=== PATIENT | male | born 1975 | race Caucasian/White ===

== ENCOUNTER 2022-06-02 18:50 | Emergency (ER) | payer OTHER, SELFPAY ==
--- NOTE | ~2022-06-02 | XR_ITS ---
XR knee RT min 4V 06/02/2022 20:05 INDICATION: Right knee pain PROCEDURE: 4 views right knee COMPARISON: No prior studies for comparison. FINDINGS: Fracture, dislocation or subluxation is not identified. No significant joint effusion. The soft tissues appear within normal limits. No foreign bodies are identified. IMPRESSION: 1: NO ACUTE BONE OR JOINT ABNORMALITY IDENTIFIED. Reviewed, dictated and finalized at location A.
[2022-06-02 18:59] VITALS: BP 126/86; PULSE 62; RESP 16; TEMP 36.3; O2SAT 99
--- NOTE | 2022-06-02 19:55 | ED.LOWEXIN ---
HPI - Extremity Injury (Lower) General Chief Complaint: Extremity Injury, Lower Stated Complaint: right knee pain Time Seen by Provider: 06/02/22 19:45 History of Present Illness HPI Narrative: 46-year-old male presents with chronic pain in his right knee, he had injured it several years ago and has had pain there ever since, however he has not been able to see any specialist or get any imaging for it because he had no insurance at the time. He now has insurance and would like to be plugged into the system, he does not recall any recent traumas but about a week ago the knee had gotten quite swollen and painful, has now gotten better on its own but he is ready to be seen by orthopedics Related Data Home Medications Medication Instructions Recorded Confirmed No Home Medications 06/02/22 06/02/22 Allergies Allergy/AdvReac Type Severity Reaction Status Date / Time No Known Allergies Allergy Verified 06/02/22 18:52 Review of Systems Review of Systems: CONST: No fever. M/S: Right knee pain SKIN: No rash. NEURO: No focal numbness or weakness [facility] Past Medical History Medical History (Updated 06/02/22 @ 20:05 by Lillian Oneal MD) Chronic knee pain Surgical History Surgical History (Updated 06/02/22 @ 20:01 by Lillian Oneal MD) No significant past surgical history Exam Narrative: EXAMINATION OF ORGAN SYSTEMS/BODY AREAS: Constitutional: Vital signs per nursing GENERAL:[No acute distress, non-toxic appearing.] HEAD: Normal with no signs of head trauma. EYES: EOMI, conjunctiva normal ENT: Hearing grossly intact LUNGS: Nonlabored breathing. HEART: [Regular rate and rhythm] EXT: Normal range of motion; able to bear weight on his leg, some tenderness palpation in the medial inferior aspect of the right knee, minimal effusion. Good perfusion, slight antalgic gait SKIN: [No rashes or lesions.] NEURO: [Alert and oriented x 3. No gross focal sensory or strength deficits.] PSYCH: Normal affect Course Vital Signs Vital signs: Vital Signs Temperature 97.3 F L 06/02/22 18:59 Pulse Rate 62 06/02/22 18:59 Respiratory Rate 16 06/02/22 18:59 Blood Pressure 126/86 06/02/22 18:59 Pulse Oximetry 99 06/02/22 18:59 Temperature 97.3 F L 06/02/22 18:59 Pulse Rate 62 06/02/22 18:59 Respiratory Rate 16 06/02/22 18:59 Blood Pressure 126/86 06/02/22 18:59 Pulse Oximetry 99 06/02/22 18:59 MDM - Extremity Injury (Lower) MDM Narrative Medical decision making narrative: 46-year-old male presenting with chronic right knee pain after injury several years ago, which recently became swollen and painful but has been improving on its own. Vital stable, exam shows forage motion of the right knee, neurovascularly intact, with some minimal tenderness to the medial inferior aspect, I low concern for any fracture without any new injury and he is ambulating on the leg, I suspect possible acute exacerbation of old ligamentous or meniscus injury, XR will be obtained. XR is negative for acute fx. He will be given f/u with ortho for further management; return precautions provided. Discharge Plan Discharge Clinical Impression: Injury of knee, right Patient Disposition: Home, Self-Care Condition: Stable Instructions: Antibiotic Form, Knee Sprain (DC), Knee Immobilizer (ED) Additional Instructions: Please follow up with the orthopedist and keep the knee immobilizer on; come back if you have any new numbness/weakness/coldness to the leg or any worsening pain. Prescriptions: No Action No Home Medications Follow-up/Referrals: PHYSICIAN,EMR IMPLEMENTATION SPECIALIST [Primary Care Provider] - David Stover MD [Physician] - 2 Days
== END 2022-06-02 20:51 | disposition home or self-care (01) ==
LOC: ANHED 20:45
PROVIDERS: Emergency Provider Emergency Medicine
DX: M25.561 Pain in right knee (principal); G89.21 Chronic pain due to trauma
CPT/HCPCS: 73564; 99283

== ENCOUNTER 2024-10-27 00:48 | Emergency (ER) | payer OTHER, SELFPAY ==
[2024-10-27 00:51] VITALS: BP 147/93; PULSE 67; RESP 15; TEMP 36.3; O2SAT 100
--- NOTE | 2024-10-27 02:37 | ED.GENADULT ---
HPI - General Adult General Chief complaint: Headache Stated complaint: migraine Time Seen by Provider: 10/27/24 02:23 History of Present Illness HPI narrative: 49-year-old male present to the emergency department for evaluation for headache. Patient states he does have a history of migraines/headache. Patient states that often his headaches are behind the right eye head are sharp but only last approximately 30 minutes. Patient reports he has had multiple headaches over the last few days affecting the right eye. Patient denies any falls or injuries. Related Data Home Medications ?Medication ?Instructions ?Recorded ?Confirmed ?Last Taken ?Type No Home Medications 06/02/22 06/02/22 Unknown History Allergies Allergy/AdvReac Type Severity Reaction Status Date / Time No Known Allergies Allergy Verified 06/02/22 18:52 Review of Systems Review of Systems: All systems reviewed & are unremarkable except as noted in HPI and below PMFSH Past Medical History Medical History (Updated 10/27/24 @ 03:38 by Omar Denney MD) Chronic knee pain Surgical History Surgical History (Updated 06/02/22 @ 20:01 by Lillian Oneal MD) No significant past surgical history Exam Narrative: APPEARANCE: Well appearing, no pain, no distress, well-nourished. HEAD: normocephalic, atraumatic. EYES: PERRLA/EOMI, conjunctivae clear. NOSE: Normal no drainage EARS:TMS clear with good light reflex. THROAT: Pharynx clear, no exudate. NECK: Supple. No adenopathy, no masses. RESPIRATORY: Airway patent, respirations nonlabored. Clear to auscultation bilaterally, no rales, rhonchi, wheezing. CARDIOVASCULAR: Regular rate and rhythm without murmurs rubs or gallops. ABDOMINAL: Soft, nontender, nondistended, normal bowel sounds MUSCULOSKELETAL: Moves all extremities. Strength/ROM intact, No edema, No calf tenderness. NEURO: Alert. Cranial nerves II through XII intact. SKIN: Warm, dry. Normal Color Course Vital Signs Vital signs: Vital Signs Temperature 97.4 F L 10/27/24 00:51 Pulse Rate 67 10/27/24 00:51 Respiratory Rate 15 10/27/24 00:51 Blood Pressure 147/93 H 10/27/24 00:51 Pulse Oximetry 100 10/27/24 00:51 Oxygen Delivery Room Air 10/27/24 00:51 Temperature 97.4 F L 10/27/24 00:51 Pulse Rate 67 10/27/24 00:51 Respiratory Rate 15 10/27/24 00:51 Blood Pressure 147/93 H 10/27/24 00:51 Pulse Oximetry 100 10/27/24 00:51 Oxygen Delivery Room Air 10/27/24 00:51 Medical Decision Making MDM Narrative Medical decision making narrative: 49-year-old male presents emergency department for evaluation for headache primarily behind the right eye. Patient was placed on high-flow oxygen for concern for cluster headache. Patient did not feel that the oxygen helped much. Patient was treated with Toradol Compazine Benadryl IV fluids states this resolved his headache. Patient is alert oriented pain-free. Patient was encouraged close follow-up with primary care physician to potentially get rescue medications for his migraines. Patient was educated on reasons to return to the emergency department. All questions concerns were addressed. Patient was well-appearing at time of discharge. Differential Diagnosis Differential Diagnosis: Migraine, headache, cluster headache Vital Signs Vital Signs: Vital Signs Temperature 97.4 F L 10/27/24 00:51 Pulse Rate 67 10/27/24 00:51 Respiratory Rate 15 10/27/24 00:51 Blood Pressure 147/93 H 10/27/24 00:51 Pulse Oximetry 100 10/27/24 00:51 Oxygen Delivery Room Air 10/27/24 00:51 Temperature 97.4 F L 10/27/24 00:51 Pulse Rate 67 10/27/24 00:51 Respiratory Rate 15 10/27/24 00:51 Blood Pressure 147/93 H 10/27/24 00:51 Pulse Oximetry 100 10/27/24 00:51 Oxygen Delivery Room Air 10/27/24 00:51 Discharge Plan Discharge Clinical Impression: Headache Patient Disposition: Home, Self-Care Condition: Stable Instructions: Antibiotic Form, Cluster Headache (ED), Migraine Headache (ED) Additional Instructions: Have close follow-up with your primary care physician regarding or migraines. If you have any worsening symptoms then please call or return to the emergency department. Patient Language: Portuguese Prescriptions: No Action No Home Medications Follow-up/Referrals: PHYSICIAN,ELECTRONIC WARFARE TECHNICAL [Primary Care Provider] -
[2024-10-27] MEDS: PROCHLORPERAZINE EDISYLATE 10 MG/2 ML VIAL IV PUSH (02:57)
[2024-10-27] MEDS: diphenhydrAMINE HCl INJ 50 MG/ML VIAL 25 MG IV PUSH (02:57)
[2024-10-27] MEDS: KETOROLAC 15 MG/ML VIAL (*BKC) IV PUSH (02:57)
[2024-10-27] MEDS: SODIUM CHLORIDE 0.9% IV 1,000 ML 999 ML IV CONT (02:58)
[2024-10-27 04:09] VITALS: BP 101/64; PULSE 84; RESP 16; O2SAT 100
--- OUTSIDE RECORDS SUMMARY | 2024-11-03 01:40 | XMS_ITS | Patient Health Record ---
Author Organization [facility] Address [address] [place] [id number] Care Team Providers Care Final Cleaner Name Role Phone Mendel Pagan Unavailable Unavailable Reason For Referral No Information Plan Of Treatment No Information Insurance Providers Payer Name Payer Address Payer Phone Subscriber Number Group Number Insured Name Patient Relationship to Insured Coverage Start Date Coverage End Date [facility] Pratima/Ronaldo Ej Ren Self - patient is the insured
--- OUTSIDE RECORDS SUMMARY | 2024-11-03 01:40 | XMS_ITS | Encounter Summary ---
Author Organization [facility] Address [address] [place] [address]. [place] [address] [place] [address] Care Team Providers Care Auditor Tax Name Role Phone None, Provider Primary Care Provider Unavaila ble Reason for Visit * Reason Comments Eye Injury Encounter Details Date Type Department Care Team (Late st Contact Info) Description 12/18/2022 8:46 AM CARE MANAGER - 12/18/2022 10:09 AM CARE MANAGER Emergency [facility] [place] [address] Samina Lobato NP [address] [address] Eye Injury Discharge Disposition: Home or Self Care (Routine Discharge) Social History Tobacco Use Types Packs/Day Years Used Date Smoking Tobacco: Never Smokeless Tobacco: Never Tobacco Cessation:Counseling Given: Not Answered Alcohol Use Standard Drinks/Week Comments Not Currently 0 (1 standard drink = 0.6 oz pur e alcohol) Sex and Gender Information Value Date Recorded Sex Assigned at Not on file Legal Sex Male 8:40 AM CARE MANAGER Gender Identity Not on file Sexual Orientation Not on file COVID-19 Exposure Response Date Recorded In the last 10 days, have yo u been in contact with someone who was confirmed or suspected to have Coronavirus/COVID-19? No / Unsure 12/18/2022 8:46 AM CARE MANAGER documented as of this encounter Last Filed Vital Signs Vital Sign Reading Time Taken Comments Blood Pressure 139/85 12/18/2022 8:44 AM CARE MANAGER Pulse 63 12/18/2022 8:44 AM CARE MANAGER Temperature 36.6 ??C (97.8 ??F) 12/18/2022 8:44 AM CS T Respiratory Rate 18 12/18/2022 8:44 AM CARE MANAGER Oxygen Saturation 99% 12/18/2022 8:44 AM CARE MANAGER Inhaled Oxygen Concentration - - Weight 90.7 kg (200 lb) 12/18/2022 8:44 AM CARE MANAGER Height 180.3 cm (5' 11 ) 12/18/2022 8:44 AM CARE MANAGER Body Mass Index 27.89 12/18/2022 8:44 AM CARE MANAGER documented in this encounter Discharge Instructions * Attachments The following attachments cannot be sent through Care Everywhere. * Corneal Abrasion Discharge Instructions (Romansh) documented in this encounter ED Notes * Charu Lemos RN - 12/18/2022 10:08 AM CST Provider discussed today's findings with the patient/family. The patient has been given informationregarding their treatment, follow up and concerning symptoms for which they should seek urgent or emergent attention. I have expressed the the importance of seeking attention should there be any new,or worsening symptoms or persistence of their condition. Patient verbalized understanding of the discharge instructions. MANAGER * Samina Lobato NP - 12/18/2022 8:51 AM CST [facility] Emergency Department- [place], [place] HISTORICAL INFORMATION Primary Care Doctor: Provider Tracey, Patient information was obtained primarily from the patient, triage notes. History/Exam limitations: None Provider at Bedside Date/Time Event User Comments 12/18/22 0850 Provider at Bedside Assessing Patient SAMINA LOBATO -- CHIEF COMPLAINT Eye Injury Chief Complaint Patient presents with ??? Eye Injury HPI Ej Ren is a 47-year-old male who presents with c/o possible foreign body in left eye. Was power washing yesterday and also grinding , he did wear safety goggles but they got so dirty, he is not sure something did not fall into his eye when he removed the glasses. Did shower twice last night, noted increase in symptoms after first shower and then allowed shower water to run into his eye with second shower. Still feels like something was moving around up under the upper lid and used an OTC eye kit today with no relief. Was working at home. Does not wear glasses for vision correction He is not sure of his last tetanus. PAST MEDICAL HISTORY History reviewed. No pertinent past medical history. SURGICAL HISTORY History reviewed. No pertinent surgical history. CURRENT MEDICATIONS No current facility-administered medications for this encounter. Current Outpatient Medications: ??? ibuprofen (MOTRIN) 800 MG tablet, Take 1 tablet (800 mg total) by mouth every 8 (eight) hours as needed for Pain. Take with food, Disp: 20 tablet, Rfl: 0 ??? trimethoprim-polymyxin b (POLYTRIM) ophthalmic solution, Place 1 drop into both eyes every 4 (four) hours for 7 days., Disp: 3 mL, Rfl: 0 ALLERGIES No Known Allergies FAMILY HISTORY No family history on file. SOCIAL HISTORY Social History Socioeconomic History ??? Marital status: Single Tobacco Use ??? Smoking status: Never ??? Smokeless tobacco: Never Substance and Sexual Activity ??? Alcohol use: Not Currently ??? Drug use: Not Currently Review of Systems Eyes: Positive for photophobia, pain and visual disturbance. Left eye, foreign body sensation. Physical Exam VITAL SIGNS: Filed Vitals: 12/18/22 0844 BP: 139/85 Pulse: 63 Resp: 18 Temp: 97.8 ??F (36.6 ??C) TempSrc: Temporal SpO2: 99% Weight: 90.7 kg (200 lb) Height: 5' 11 (1.803 m) Physical Exam Vitals reviewed. Constitutional: General: He is not in acute distress. Appearance: He is well-developed. HENT: Head: Normocephalic. Eyes: General: Right eye: No discharge. Left eye: No discharge. Extraocular Movements: Extraocular movements intact. Pupils: Pupils are equal, round, and reactive to light. Comments: Left conjunctiva injected. 2 areas of left cornea have fluoresein uptake. Upper and lowerlids everted. 2 'dots' washed off eye onto towel but not able to tell if wood, dirt or metal. No rust ring noted on cornea. 1 in the center of the iris and one at 7o clock. Tip of sterile 27 needle applied to center spot, does not lift. No pain with that attempt per patient. There is no fluid or jelly discharge from the eye. Cardiovascular: Rate and Rhythm: Normal rate. Pulmonary: Effort: Pulmonary effort is normal. Skin: General: Skin is warm and dry. Coloration: Skin is not pale. Neurological: Mental Status: He is alert and oriented to person, place, and time. Psychiatric: Judgment: Judgment normal. EKG (interpreted by ED provider) No results found for this visit on 12/18/22. LABORATORY Labs Reviewed - No data to display RADIOLOGY No orders to display naPROCEDURES Procedures Eye flush, complete relief with tetracaine drop. Tolerated well. Pulse Oximetry Interpretation Saturation: 99% Oxygen Delivery: room air Interpretation: normal. No hypoxia PROGRESS NOTES Tolerated eye flush well. He has complete relief with tetracaine drop. Discussed likely corneal abrasion x 2. No rust ring. Could still be a foreign body. Will treat with antibiotics and if not better in 24 hours or any worsening, to call ophth for follow up or return. He and agree. Differential diagnosis: foreign body in eye, corneal abrasions x 2 ED COURSE & MEDICAL DECISION MAKING Pertinent Labs & Imaging studies reviewed. (See chart for details) na Amount and/or Complexity of Data Reviewed Triage notes and available nursing notes reviewed FINAL IMPRESSION Corneal abrasion x 2 Samina Lobato NP I have discussed today's findings with the patient and provided information regarding the likely diagnosis. The patient has been given information regarding their treatment, follow up and concerning symptoms for which they should seek urgent or emergent attention. I have expressed the the importance of seeking attention should there be any new, or worsening symptoms or persistence of their condition. The patient is stable at discharge and has verbalized understanding of these instructions. Impression/Disposition SNOMED CT(R) 1. Abrasion of left cornea, initial encounter ABRASION OF LEFT CORNEA Disposition: Discharge Medications tetracaine 0.5 % ophthalmic solution 1 drop (1 drop Left Eye Given 12/18/22 09) fluorescein (FLUORETS) ophthalmic strip 1 strip (1 strip Left Eye Given 12/18/22902) Tdap (BOOSTRIX) injection 0.5 mL (0.5 mLs Intramuscular Given 12/18/22 09) Discharge Medication List as of 12/18/2022 9:56 AM START taking these medications Details trimethoprim-polymyxin b (POLYTRIM) ophthalmic solution Place 1 drop into both eyes every 4 (four) hours for 7 days., Starting 12/18/2022, Until 12/25/2022, Fax Class: Fax Pharmacy: [id number] - [address] [facility] [address] (Ph #: [phone]) DAYANARA CHAMORRO NP 12/18/22 1824 Cosigned by Layton Dent MD at 12/19/2022 1:23 PM CARE MANAGER MANAGER MANAGER * Rosette Funez RN - 12/18/2022 8:44 AM CST 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 He reports getting a piece of metal in his eye. He reports pain/burning with vision changes. ROSETTE FUNEZ RN MANAGER documented in this encounter Plan of Treatment Not on file documented as of this encounter Visit Diagnoses Diagnosis Abrasion of left cornea, initial encounter- Primary documented in this encounter Administered Medications Inactive Administered Medications - up to 3 most recent administrations Medication Order MAR Action Action Date Dose Rate Site balanced salts (EYE STREAM) ophthalmic solution 1 drop 1 drop, Left Eye, As needed, Other, Starting on 12/18/22 at 0850, Until 12/18/22 at 1210 fluorescein (FLUORETS) ophthalmic strip 1 strip 1 strip, Left Eye, Once, 1 dose, On 12/18/22 at 0900 Given 12/18/2022 9:03 AM CARE MANAGER 1 strip tetracaine 0.5 % ophthalmic solution 1 drop 1 drop, Left Eye, Once, 1 dose, On 12/18/22 at 0900 Given 12/18/2022 9:03 AM CARE MANAGER 1 drop documented in this encounter Active and Recently Administered Medications Times are shown in CARE MANAGER. Scheduled Medication Order 12/16/2022 12/17/2022 12/18/2022 fluorescein (FLUORETS) ophthalmic strip 1 strip (COMPLETED) 1 strip, Left Eye, Once, 1 dose, On 12/18/22 at 0900 0903 (Given - Provid er: Charu Lemos RN) tetracaine 0.5 % ophthalmic solution 1 drop (COMPLETED) 1 drop, Left Eye, Once, 1 dose, On 12/18/22 at 0900 0903 (Given - Provid er: Charu Lemos RN) PRN Medication Order 12/16/2022 12/17/2022 12/18/2022 balanced salts (EYE STREAM) ophthalmic solution 1 drop 1 drop, Left Eye, As needed, Other, Starting on 12/18/22 at 0850, Until 12/18/22 at 1210 documented in this encounter Care Teams Auditor Tax Relationship Specialty Start Date End Date None, Provider, PCP - General UNKNOWN PHYSICIAN SPECIALTY 12/18/22 documented as of this encounter
--- OUTSIDE RECORDS SUMMARY | 2024-11-03 01:40 | XMS_ITS | Encounter Summary ---
Author Organization [facility] Care Team Providers Care Curator Of Manuscripts Name Role Phone Provider, None Primary Care Provider Unavailabl e Encounter Details Date Type Department Care Team (Latest Contact Info) Description 05/02/2021 Travel Social History Tobacco Use Types Packs/Day Years Used Date Smoking Tobacco: Every Day Cigarettes Smokeless Tobacco: Never Alcohol Use Standard Drinks/Week Comments Yes 0 (1 standard drink = 0.6 oz pur e alcohol) Sex and Gender Information Value Date Recorded Sex Assigned at Not on file Legal Sex Male 9:59 PM CDT Gender Identity Not on file Sexual Orientation Not on file COVID-19 Exposure Response Date Recorded In the last month, have you been in contact with someone who was confirmed or suspected to have Coronavirus / COVID-19? No / Unsure 05/02/2021 3:07 PM CDT documented as of this encounter Plan of Treatment Not on file documented as of this encounter Visit Diagnoses Not on filedocumented in this encounter Care Teams Curator Of Manuscripts Relationship Specialty Start Date End Date Provider, None [place] PCP - General 04/19/18 documented as of this encounter
--- OUTSIDE RECORDS SUMMARY | 2024-11-03 01:40 | XMS_ITS ---
Author Organization [facility] Address [address] [place] [address] Care Team Providers Care Utility Gelatin Maker Name Role Phone Mendel Pagan Unavailable Unavailable REASON FOR VISIT 8:30 a ING DH PEP [place] Encounters Encounter Location Date Provider Diagnosis FRM Study Course Offsite Physicals [address] [place] [address] 07/01/2024 Mendel Pagan Plan Of Treatment No Information Progress Notes * Ej DUQUE HDOB:1975 (49 yo M)Acc No.[id number]:07/01/2024 Patient:?Ej DUQUE Provider:?Mendel Pagan PA-C :1975???Age:48 Y???Sex:Male Alberto e:07/01/2024 Address[address] [place], [id number] Subjective: * Chief Complaints: * ???1. 8:30 a ING DH PEP [address]. * Medical History:? Objective: * Vitals:? Assessment: Plan: * Treatment: * Billing Information: * Visit Code:? * Procedure Codes:? * Electronic signature of ROYA Robles on 11/03/2024 at 01:40 AM CLIMATE CHANGE RISK ASSESSOR Sign off status: Pending * Provider:?Mendel Pagan PA-C Date:?06/07 Generated for Laila alexander/Roxann/eTransmitting on:?11/03/2024 01:40 AM CLIMATE CHANGE RISK ASSESSOR
--- OUTSIDE RECORDS SUMMARY | 2024-11-03 01:40 | XMS_ITS | Encounter Summary ---
Author Organization [facility] Address [address] [place] [address]. [place], [place] [id number] [place] [id number] Care Team Providers Care Circuit Board Assembler Name Role Phone None, Provider Primary Care Provider Unavaila ble Encounter Details Date Type Department Care Team (Latest Contact Info) Description 12/18/2022 Travel Social History Tobacco Use Types Packs/Day Years Used Date Smoking Tobacco: Never Smokeless Tobacco: Never Alcohol Use Standard Drinks/Week Comments Not Currently 0 (1 standard drink = 0.6 oz pur e alcohol) Sex and Gender Information Value Date Recorded Sex Assigned at Not on file Legal Sex Male 8:40 AM HOSTED SERVICES ANALYST Gender Identity Not on file Sexual Orientation Not on file COVID-19 Exposure Response Date Recorded In the last 10 days, have yo u been in contact with someone who was confirmed or suspected to have Coronavirus/COVID-19? No / Unsure 12/18/2022 8:46 AM HOSTED SERVICES ANALYST documented as of this encounter Plan of Treatment Not on file documented as of this encounter Visit Diagnoses Not on filedocumented in this encounter Care Teams Circuit Board Assembler Relationship Specialty Start Date End Date None, Provider, PCP - General UNKNOWN PHYSICIAN SPECIALTY 12/18/22 documented as of this encounter
--- OUTSIDE RECORDS SUMMARY | 2024-11-03 01:40 | XMS_ITS | Encounter Summary ---
Author Organization [facility] Address [address] [place] [address] Phone Care Team Providers Care Broker Assistant Name Role Phone Provider, None Primary Care Provider Unavailabl e Reason for Visit * Reason Comments Knee Pain Encounter Details Date Type Department Care Team (Late st Contact Info) Description 10/03/2020 6:32 PM RETORT FORKER - 10/03/2020 8:01 PM RETORT FORKER Emergency [facility] Emergency [address] [place] [address] Eb Maldonado, PAC [address] [place] [address] Right knee pain Discharge Disposition: Discharged to home or Selfcare Social History Tobacco Use Types Packs/Day Years [...] have Coronavirus / COVID-19? No / Unsure 10/03/2020 6:59 PM RETORT FORKER documented as of this encounter Last Filed Vital Signs Vital Sign Reading Time Taken Comments Blood Pressure 125/78 10/03/2020 6:27 PM RETORT FORKER Pulse 66 10/03/2020 6:27 PM RETORT FORKER Temperature 36.3 ??C (97.4 ??F) 10/03/2020 6:27 PM CS T Respiratory Rate 18 10/03/2020 6:27 PM RETORT FORKER Oxygen Saturation 98% 10/03/2020 6:27 PM RETORT FORKER Inhaled Oxygen Concentration - - Weight 86.2 kg (190 lb) 10/03/2020 6:27 PM RETORT FORKER Height 180.3 cm (5' 11 ) 10/03/2020 6:27 PM RETORT FORKER Body Mass Index 26.5 10/03/2020 6:27 PM RETORT FORKER documented in this encounter Discharge Instructions * Attachments The following attachments cannot be sent through Care Everywhere. * Strains and Sprains, Treating (Colombian) documented in this encounter Medications at Time of Discharge Benzocaine-Mentho l (CEPACOL EXTRA STRENGTH) 15-2.6 MG Lozenge 1 Lozenge by Mouth/Throat route every 2 hours as needed for Other (sore throat). 18 Lozenge 10/05/2018 HYDROcodone-aceta minophen (NORCO) 5-325 MG Tablet Take 1 Tab by mouth every 6 hours as needed for Moderate or more severe pain. 20 Tab 10/03/2020 naproxen (NAPROSYN) 500 MG Tablet Take 1 Tab by mouth 2 times daily (with meals). 30 Tab 03/06/2020 documented as of this encounter ED Notes * Jim Canales RN - 10/03/2020 8:01 PM CST Patient discharged. Discharge instructions and patient educational material reviewed with patient; questions and concerns addressed; patient verbalizes understanding, using teach back. Patient was given 1 prescriptions. Patient was informed no drinking alcohol, driving or operating heavy machinery while taking narcotics or muscle relaxants. Patient discharged per ambulatory mode with self as responsible libertarian. RT FORKER * Eb Maldonado PAC - 10/03/2020 7:34 PM CST Chief Complaint Patient presents with ??? Knee Pain Ej Ren is a 44 y.o. male who presents to the ED c/o right knee pain starting yesterday. Patient states he has a chronic knee injury, states a torn ACL on right x1 year. He has not seen an orthorpedist for this. Yes[place] and his right foot caught a raisedstone right lateral valgus injury. Patient arrived to the ED in a knee immobilizer and crutches. [place]. No other injury. History reviewed. No pertinent past medical history. No current facility-administered medications for this encounter. Current Outpatient Medications Medication Sig Dispense Refill ??? Benzocaine-Menthol (CEPACOL EXTRA STRENGTH) 15-2.6 MG Lozenge 1 Lozenge by Mouth/Throat route every 2 hours as needed for Other (sore throat). 18 Lozenge 0 ??? HYDROcodone-acetaminophen (NORCO) 5-325 MG Tablet Take 1 Tab by mouth every 6 hours as needed for Moderate or more severe pain. 20 Tab 0 ??? naproxen (NAPROSYN) 500 MG Tablet Take 1 Tab by mouth 2 times daily (with meals). 30 Tab 0 No Known Allergies History reviewed. No pertinent past medical history. No past surgical history on file. Social History Socioeconomic History ??? Marital status: Single Spouse name: Not on file ??? Number of children: Not on file ??? Years of education: Not on file ??? Highest education level: Not on file Occupational History ??? Not on file Social Needs ??? Financial resource strain: Not on file ??? Food insecurity Worry: Not on file Inability: Not on file ??? Transportation needs Medical: Not on file Non-medical: Not on file Tobacco Use ??? Smoking status: Current Every Day Smoker Packs/day: 0.50 Types: Cigarettes ??? Smokeless tobacco: Never Used Substance and Sexual Activity ??? Alcohol use: Yes ??? Drug use: Yes Frequency: 7.0 times per week Types: Marijuana ??? Sexual activity: Not on file Lifestyle ??? Physical activity Days per week: Not on file Minutes per session: Not on file ??? Stress: Not on file Relationships ??? Social connections Talks on phone: Not on file Gets together: Not on file Attends taoism service: Not on file Active member of club or organization: Not on file Attends meetings of clubs or organizations: Not on file Relationship status: Not on file ??? Intimate partner violence Fear of current or ex partner: Not on file Emotionally abused: Not on file Physically abused: Not on file Forced sexual activity: Not on file Other Topics Concern ??? Not on file Social History Narrative ??? Not on file BP 125/78 Pulse 66 Temp 97.4 ??F (36.3 ??C) (Tympanic) Resp 18 Ht 5' 11 (1.803 m) Wt 190lb (86.2 kg) SpO2 98% BMI 26.50 kg/m?? Review of Systems Constitutional: Negative for chills, fatigue and fever. HENT: Negative for congestion and sore throat. Respiratory: Negative for cough, chest tightness, shortness of breath and wheezing. Cardiovascular: Negative for chest pain and palpitations. Gastrointestinal: Negative for abdominal pain, constipation, diarrhea, nausea and vomiting. Genitourinary: Negative for dysuria, frequency and hematuria. Musculoskeletal: Positive for arthralgias (right knee) and gait problem (limping on right). Negative for back pain and joint swelling. Skin: Negative for color change and wound. Neurological: Negative for dizziness, light-headedness and headaches. All other systems reviewed and are negative. Physical Exam Vitals signs and nursing note reviewed. Constitutional: General: He is not in acute distress. Appearance: He is well-developed. He is not diaphoretic. HENT: Head: Normocephalic and atraumatic. Eyes: Pupils: Pupils are equal, round, and reactive to light. Neck: Musculoskeletal: Normal range of motion and neck supple. Thyroid: No thyromegaly. Cardiovascular: Rate and Rhythm: Normal rate and regular rhythm. Heart sounds: Normal heart sounds. No murmur. Pulmonary: Effort: Pulmonary effort is normal. No respiratory distress. Breath sounds: Normal breath sounds. No wheezing, rhonchi or rales. Chest: Chest wall: No tenderness. Abdominal: General: Bowel sounds are normal. There is no distension. Palpations: Abdomen is soft. There is no mass. Tenderness: There is no abdominal tenderness. There is no guarding or rebound. Musculoskeletal: Right knee: He exhibits decreased range of motion, swelling, effusion and abnormal meniscus. He exhibits no ecchymosis, no deformity, no laceration, no LCL laxity and no MCL laxity. Tenderness found.Lateral joint line tenderness noted. Lymphadenopathy: Cervical: No cervical adenopathy. Skin: General: Skin is warm and dry. Coloration: Skin is not pale. Findings: No erythema or rash. Neurological: Mental Status: He is alert and oriented to person, place, and time. Cranial Nerves: No cranial nerve deficit. Psychiatric: Behavior: Behavior normal. Procedures Imaging Results XR KNEE 1 OR 2 VIEWS RIGHT (Final result) Result time 10/03/20 19:50:01 Procedure changed from XR KNEE 3 VIEWS RIGHT Final result by Mercedes Lynch MD (10/03/20 19:50:01) Impression: IMPRESSION: 1. Joint effusion. No acute fracture or dislocation. Narrative: EXAM DESCRIPTION: XR KNEE 1 OR 2 VIEWS RIGHT REASON FOR STUDY: Tripped yesterday morning. Medial pain and swelling. Prior ACL injury. TECHNIQUE: PA and lateral radiographic views acquired of the right knee. COMPARISON: 03/06/2020 FINDINGS: BONES/JOINTS: No acute fracture, malalignment or osseous abnormalities. There is no significant joint space narrowing. There is an underlying joint effusion. SOFT TISSUES: Unremarkable. OTHER: No other significant finding. THIS IS AN ELECTRONICALLY VERIFIED FINAL REPORT 10/03/2020 7:47 PM - Electronically signed by Mercedes Lynch M.D. TB: TB Report ID: [id number] Reading Location: [facility] XR KNEE 3 VIEWS RIGHT (Canceled) MDM Coding Clinical Impression 1. Right knee pain Reviewed imaging with patient. Suspect soft tissue injury. [place] for pain. Continue to use knee immobilizer and crutches. RICE. Ortho and PCP list provided. Return to ED for worsening sxs. The patient remained stable throughout their ED stay. My clinical impression was discussed with thepatient/family. Labs and radiology results were reviewed with them. I gave them the opportunity to ask questions, and addressed them as completely as possible given the information available at present. The therapeutic plan was discussed, advised to take medications as instructed, instructions weregiven and the importance of primary care follow up was stressed and encouraged. The patient/family voiced understanding of the plan, indications to return, and the need for follow up. Cosigned by Weston Carballo MD at 2020 5:43 AM RETORT FORKER RT FORKER RT FORKER * Yoni Christianson RN - 10/03/2020 6:29 PM CST Pt to ER triage w/c/o right knee pain starting yesterday. Pt states that he had a similar problem approx 1 year ago with the same leg. Pt denies hitting head or LOC. Xray right knee ordered in triage. RT FORKER documented in this encounter Plan of Treatment Not on file documented as of this encounter Procedures Procedure Name Priority Date/Time Associated Diagnosis Comments XR KNEE 1 OR 2 VIEWS RIGHT STAT 10/03/2020 7:29 PM RETORT FORKER documented in this encounter Results * XR KNEE 1 OR 2 VIEWS RIGHT (10/03/2020 7:29 PM RETORT FORKER) Anatomical Region Laterality Modality LOWER EXTREMITY, knee Right Digital Ra diography 10/03/2020 7:47 PM RETORT FORKER Impressions 10/03/2020 7:50 PM RETORT FORKER IMPRESSION: ?? 1. ??Joint effusion. ??No acute fracture or dislocation. Narrative 10/03/2020 7:50 PM RETORT FORKER EXAM DESCRIPTION: ?XR KNEE 1 OR 2 VIEWS RIGHT REASON FOR STUDY: ?? Tripped yesterday morning. ??Medial pain and swelling. ??Prior ACL injury. TECHNIQUE: ?? PA and lateral radiographic views acquired of the right knee. COMPARISON: ?? 03/06/2020 FINDINGS: ??BONES/JOINTS: ??No acute fracture, malalignment or osseous abnormalities. There is no significant joint space narrowing. ??There is an underlying joint effusion. SOFT TISSUES: ??Unremarkable. OTHER: ??No other significant finding. THIS IS AN ELECTRONICALLY VERIFIED FINAL REPORT 10/03/2020 7:47 PM - Electronically signed by Mercedes Lynch M.D. TB: MAURIZIO D: ??10/03/2020 7:47 PM T: ??10/03/2020 7:47 PM Report ID: [id number] Reading Location: [facility] Procedure Note Mercedes Lynch MD - 10/03/2020 EXAM DESCRIPTION: XR KNEE 1 OR 2 VIEWS RIGHT REASON FOR STUDY: Tripped yesterday morning. Medial pain and swelling. Prior ACL injury. TECHNIQUE: PA and lateral radiographic views acquired of the right knee. COMPARISON: 03/06/2020 FINDINGS: BONES/JOINTS: No acute fracture, malalignment or osseous abnormalities. There is no significant joint space narrowing. There is an underlying joint effusion. SOFT TISSUES: Unremarkable. OTHER: No other significant finding. THIS IS AN ELECTRONICALLY VERIFIED FINAL REPORT 10/03/2020 7:47 PM - Electronically signed by Mercedes Lynch M.D. TB: TB Report ID: [id number] Reading Location: [facility] IMPRESSION: 1. Joint effusion. No acute fracture or dislocation. Eb Maldonado PAC IMG DIAGNOSTIC ORDER ROGELIO Final Result documented in this encounter Visit Diagnoses Diagnosis Right knee pain- Primary Pain in joint, lower leg documented in this encounter Care Teams Broker Assistant Relationship Specialty Start Date End Date Provider, None [place] PCP - General 04/19/18 documented as of this encounter
--- OUTSIDE RECORDS SUMMARY | 2024-11-03 01:40 | XMS_ITS | Encounter Summary ---
Author Organization [facility] Address [address] [place] [address] Phone Care Team Providers Care Screen Tender Name Role Phone Provider, None Primary Care Provider Unavailabl e Reason for Visit * Reason Comments Exposure to STD Encounter Details Date Type Department Care Team (Late st Contact Info) Description 05/02/2021 3:11 PM CDT - 05/02/2021 3:52 PM CDT Emergency [facility] Emergency [address] [place] [address] Sudarshan Nolan MD [address] [place] [address] Penile discharge Discharge Disposition: Discharged to home or Selfcare [...] PM CDT documented as of this encounter Last Filed Vital Signs Vital Sign Reading Time Taken Comments Blood Pressure 137/79 05/02/2021 3:08 PM CDT Pulse 66 05/02/2021 3:08 PM CDT Temperature 36.7 ??C (98.1 ??F) 05/02/2021 3:08 PM CD T Respiratory Rate 18 05/02/2021 3:50 PM CDT Oxygen Saturation 98% 05/02/2021 3:08 PM CDT Inhaled Oxygen Concentration - - Weight 85.3 kg (188 lb) 05/02/2021 3:08 PM CDT Height 180.3 cm (5' 11 ) 05/02/2021 3:08 PM CDT Body Mass Index 26.22 05/02/2021 3:08 PM CDT documented in this encounter Discharge Instructions * Discharge Instructions* Sudarshan Nolan - 05/02/2021 3:25 PM CDT YOU HAVE RECEIVED FULL TREATMENT FOR POSSIBLE GONORRHEA/CHLAMYDIA INFECTION. GIVE 1 WEEK FOR FULL AFFECT. MAKE SURE ANY POTENTIAL PARTNER GETS TREATED WELL. * Attachments The following attachments cannot be sent through Care Everywhere. * Sexually Transmitted Diseases (STDs), What Are (Bulgarian) documented in this encounter Medications at Time [...] as of this encounter ED Notes * Shelia Mancera RN - 05/02/2021 3:50 PM CDT Patient discharged. Discharge instructions and patient educational material reviewed with patient; questions and concerns addressed; patient verbalizes understanding, using teach back. Patient ambulatory out with steady gait. No distress noted. * Yoni Christianson RN - 05/02/2021 3:43 PM CDT Pt medicated per provider orders. Pt educated on intended effects and side effects of medication and verbalized understanding, able to provide teach back of education. * Sudarshan Nolan - 05/02/2021 3:23 PM CDT Chief Complaint Patient presents with ??? Exposure to STD Ej Ren is a 45 y.o. male TO THE EMERGENCY DEPARTMENT FROM HOME WITH COMPLAINT OF PENILE DISCHARGE SIMILAR TO PRIOR STD HE HAD IN THE PAST. HERE FOR TREATMENT. NO OTHER ACUTE COMPLAINTS. NO TREATMENT PRIOR TO ARRIVAL. NO EXTERNAL LESIONS. Exposure to STD Pertinent negatives include no chest pain, no abdominal pain, no headaches and no shortness of breath. No current facility-administered medications for this encounter. [...] file Occupational History ??? Not on file Tobacco Use ??? Smoking status: Current Every Day Smoker Packs/day: 1.00 Types: Cigarettes ??? Smokeless tobacco: Never Used Vaping Use ??? Vaping Use: Never used Substance and Sexual Activity ??? Alcohol use: Yes ??? Drug use: Yes Frequency: 7.0 times per week Types: Marijuana ??? Sexual activity: Not on file Other Topics Concern ??? Not on file Social History Narrative ??? Not on file Social Determinants of Health Social determinant risk not applicable to this patient. BP 137/79 Pulse 66 Temp 98.1 ??F (36.7 ??C) (Tympanic) Resp 18 Ht 5' 11 (1.803 m) Wt 188lb (85.3 kg) SpO2 98% BMI 26.22 kg/m?? Review of Systems Constitutional: Negative for appetite change, chills and fever. HENT: Negative for congestion, hearing loss, rhinorrhea and sore throat. Eyes: Negative for visual disturbance. Respiratory: Negative for cough and shortness of breath. Cardiovascular: Negative for chest pain. Gastrointestinal: Negative for abdominal pain, diarrhea, nausea and vomiting. Genitourinary: Positive for discharge and dysuria. Negative for decreased urine volume, flank pain,frequency, genital sores, hematuria, penile pain, penile swelling, scrotal swelling and testicular pain. Musculoskeletal: Negative for myalgias. Skin: Negative for rash. Neurological: Negative for dizziness, weakness, light-headedness and headaches. Psychiatric/Behavioral: Negative for confusion. All other systems reviewed and are negative. Physical Exam Vitals and nursing note reviewed. Constitutional: General: He is not in acute distress. Appearance: Normal appearance. He is well-developed and normal weight. He is not ill-appearing, toxic-appearing or diaphoretic. HENT: Head: Normocephalic and atraumatic. Right Ear: External ear normal. Left Ear: External ear normal. Nose: Nose normal. Mouth/Throat: Mouth: Mucous membranes are moist. Pharynx: Oropharynx is clear. Eyes: General: No scleral icterus. Right eye: No discharge. Left eye: No discharge. Extraocular Movements: Extraocular movements intact. Conjunctiva/sclera: Conjunctivae normal. Pupils: Pupils are equal, round, and reactive to light. Neck: Trachea: No tracheal deviation. Cardiovascular: Rate and Rhythm: Normal rate and regular rhythm. Heart sounds: Normal heart sounds. No murmur heard. No friction rub. No gallop. Pulmonary: Effort: Pulmonary effort is normal. No respiratory distress. Breath sounds: Normal breath sounds. No stridor. No wheezing or rales. Abdominal: General: Bowel sounds are normal. There is no distension. Palpations: Abdomen is soft. Tenderness: There is no abdominal tenderness. There is no guarding or rebound. Musculoskeletal: General: No tenderness. Normal range of motion. Cervical back: Normal range of motion and neck supple. Lymphadenopathy: Cervical: No cervical adenopathy. Skin: General: Skin is warm and dry. Capillary Refill: Capillary refill takes less than 2 seconds. Coloration: Skin is not pale. Findings: No erythema or rash. Neurological: General: No focal deficit present. Mental Status: He is alert and oriented to person, place, and time. Cranial Nerves: No cranial nerve deficit. Psychiatric: Mood and Affect: Mood normal. Behavior: Behavior normal. Thought Content: Thought content normal. Judgment: Judgment normal. Procedures Imaging Results None MDM Coding DX: PENILE DISCHARGE * Carmen Liriano RN - 05/02/2021 3:05 PM CDT Patient to triage with c/o STD exposure. Reports white-henry clear discharge to underwear. Denies urinary symptoms. documented in this encounter Plan of Treatment Not on file documented as of this encounter Visit Diagnoses Diagnosis Penile discharge- Primary Urethral discharge documented in this encounter Administered Medications Inactive Administered Medications - up to 3 most recent administrations Medication Order MAR Action Action Date Dose Rate Site azithromycin (ZITHROMAX) tablet 1,000 mg 1,000 mg, Oral, ONCE, 1 dose, On 05/02/21 at 1600, Indications: Urinary Tract InfectionIndications:Ur inary Tract Infection Given 05/02/2021 3:42 PM CDT 1,000 mg cefTRIAXone (ROCEPHIN) injection 500 mg 500 mg, Intramuscular, ONCE, 1 dose, On 05/02/21 at 1600, Indications: Sexually Transmitted DiseaseIndications:Sexu ally Transmitted Disease Given 05/02/2021 3:42 PM CDT 500 mg Right Ventrogluteal documented in this encounter Active and Recently Administered Medications Times are shown in CDT. Scheduled Medication Order 04/30/2021 05/01/2021 05/02/2021 azithromycin (ZITHROMAX) tablet 1,000 mg (COMPLETED) 1,000 mg, Oral, ONCE, 1 dose, On 05/02/21 at 1600, Indications: Urinary Tract Infection 1542 (Given - Provid er: Yoni Christianson RN) cefTRIAXone (ROCEPHIN) injection 500 mg (COMPLETED) 500 mg, Intramuscular, ONCE, 1 dose, On 05/02/21 at 1600, Indications: Sexually Transmitted Disease 1542 (Given - Provid er: Yoni Christianson RN) documented in this encounter Care Teams Screen Tender Relationship Specialty Start Date End Date Provider, None [place] PCP - General 04/19/18 documented as of this encounter
--- OUTSIDE RECORDS SUMMARY | 2024-11-03 01:40 | XMS_ITS | Clinical Summary ---
Author Organization [facility] Address [address] [place] [address]. [place] [address] [place] [address] Care Team Providers Care Orchestra Musician Name Role Phone None, Provider MD Primary Care Provider Unavaila ble Allergies No known active allergies Medications No known medications Immunizations Name Administration Dates Next Due Tdap (Boostrix) 12/18/2022 Social History Tobacco Use Types Packs/Day Years Used Date Smoking Tobacco: Never Smokeless Tobacco: Never Tobacco Cessation:Counseling Given: Not Answered Alcohol Use Standard Drinks/Week Comments Not Currently 0 (1 standard drink = 0.6 oz pur e alcohol) Sex and Gender Information Value Date Recorded Sex Assigned at Not on file Legal Sex Male 8:40 AM HAND HARDENER Gender Identity Not on file Sexual Orientation Not on file Last Filed Vital Signs Vital Sign Reading Time Taken Comments Blood Pressure 139/85 12/18/2022 8:44 AM HAND HARDENER Pulse 63 12/18/2022 8:44 AM HAND HARDENER Temperature 36.6 ??C (97.8 ??F) 12/18/2022 8:44 AM CS T Respiratory Rate 18 12/18/2022 8:44 AM HAND HARDENER Oxygen Saturation 99% 12/18/2022 8:44 AM HAND HARDENER Inhaled Oxygen Concentration - - Weight 90.7 kg (200 lb) 12/18/2022 8:44 AM HAND HARDENER Height 180.3 cm (5' 11 ) 12/18/2022 8:44 AM HAND HARDENER Body Mass Index 27.89 12/18/2022 8:44 AM HAND HARDENER Plan of Treatment Health Maintenance Due Date Last Done Comments Colorectal Cancer Screening Colonoscopy (10 Years) 1977 Annual Physical 1980 Hepatitis C 1995 Hepatitis B Vaccines (1 of + 3-dose series) 1996 COVID-19 Vaccine (2023-2 5 season) 2024 01/02/2022, 11/29/2021 Influenza Adult (#1) 2024 DTaP, Tdap and Td Vaccines ( 2 - Td or Tdap) 12/18/2032 12/18/2022 Meningococcal Vaccine Aged Out No froy kyle eligible based on patient's age to complete this topic Pneumococcal Vaccine: Pediatrics (0 to 5 Years) and At-Risk Patients (6 to 64 Years) Aged Out No longer eligible b ased on patient's age to complete this topic RSV Immunizations Under 20 Months Aged Out No longer eligible b ased on patient's age to complete this topic Insurance MEDICAID Care Teams Orchestra Musician Relationship Specialty Start Date End Date None, Provider, PCP - General UNKNOWN PHYSICIAN SPECIALTY 12/18/22
--- OUTSIDE RECORDS SUMMARY | 2024-11-03 01:40 | XMS_ITS | Encounter Summary ---
Author Organization [facility] Care Team Providers Care Business Systems Consultant Name Role Phone Provider, None Primary Care Provider Unavailabl e Encounter Details Date Type Department Care Team (Latest Contact Info) Description 10/03/2020 Travel Social History Tobacco Use Types Packs/Day [...] COVID-19? No / Unsure 10/03/2020 6:59 PM PHYSICS TECHNICAL OFFICER documented as of this encounter Plan of Treatment Not on file documented as of this encounter Visit Diagnoses Not on filedocumented in this encounter Care Teams Business Systems Consultant Relationship Specialty Start Date End Date Provider, None [place] PCP - General 04/19/18 documented as of this encounter
--- OUTSIDE RECORDS SUMMARY | 2024-11-03 01:40 | XMS_ITS | Clinical Summary ---
Author Organization [facility] Address [address] [place] [address] Phone Care Team Providers Care Executive Manager Name Role Phone Provider, None Primary Care Provider Unavailabl e Allergies No known active allergies Medications Benzocaine-Ment hol (CEPACOL EXTRA STRENGTH) 15-2.6 MG Lozenge 1 Lozenge by Mouth/Throat route every 2 hours as needed for Other (sore throat). 18 Lozenge 10/05/2018 Active naproxen (NAPROSYN) 500 MG Tablet Take 1 Tab by mouth 2 times daily (with meals). 30 Tab 03/06/2020 Active HYDROcodone-clark taminophen (NORCO) 5-325 MG Tablet Take 1 Tab by mouth every 6 hours as needed for Moderate or more severe pain. 20 Tab 10/03/2020 Active Active Problems No known active problems Social History Tobacco Use Types Packs/Day Years [...] Mass Index 26.22 05/02/2021 3:08 PM CDT Plan of Treatment Health Maintenance Due Date Last Done Comments Hepatitis C Virus (HCV) Screening 1977 TdaP Immunization 1977 Hepatitis B Immunization (1 of 3 - 19+ 3-dose series) 1996 Colonoscopy 2022 Colorectal Cancer Screening 2022 Influenza Immunization (#1) 2024 SARS-COV-2 Immunization (3 - 2023- season) 2024 01/02/2022, 11/29/2021 Respiratory Syncytial Virus (RSV) Immunization (Adult) (1 - 1-dose 75+ series) 2052 DTaP/Tdap/Td Immunization Discontinued 10/14/2018 Meningococcal Immunization (ACWY) Aged Out No longer eligible based on patient's age to complete this topic Pneumococcal Immunization Combined Aged Out No longer eligible based on patient's age to complete this topic Rotavirus Immunization Aged Out No lo nger eligible based on patient's age to complete this topic Care Teams Executive Manager Relationship Specialty Start Date End Date Provider, None [place] PCP - General 04/19/18
--- OUTSIDE RECORDS SUMMARY | 2024-11-03 01:41 | XMS_ITS | Encounter Summary ---
Author Organization [facility] Care Team Providers Care Manager Statistical Programming Name Role Phone Provider, None Primary Care Provider Unavailabl e Encounter Details Date Type Department Care Team (Latest Contact Info) Description 03/06/2020 Travel Social History Tobacco Use Types Packs/Day [...] have Coronavirus / COVID-19? No / Unsure 03/06/2020 4:21 AM CDT documented as of this encounter Plan of Treatment Not on file documented as of this encounter Visit Diagnoses Not on filedocumented in this encounter Care Teams Manager Statistical Programming Relationship Specialty Start Date End Date Provider, None [place] PCP - General 04/19/18 documented as of this encounter
--- OUTSIDE RECORDS SUMMARY | 2024-11-03 01:41 | XMS_ITS | Encounter Summary ---
Author Organization [facility] Address [address] [place] [address] Phone Care Team Providers Care Pediatric Oncologist Name Role Phone Provider, None Primary Care Provider Unavailabl e Reason for Visit * Reason Comments Knee Pain Encounter Details Date Type Department Care Team (Late st Contact Info) Description 03/06/2020 4:23 AM CDT - 03/06/2020 6:02 AM CDT Emergency [facility] Emergency [address] [place] [address] John Vera MD [address] [place] [address] Left knee sprain Discharge Disposition: Discharged to home or Selfcare [...] AM CDT documented as of this encounter Last Filed Vital Signs Vital Sign Reading Time Taken Comments Blood Pressure 133/72 03/06/2020 4:25 AM CDT Pulse 71 03/06/2020 4:25 AM CDT Temperature 36.4 ??C (97.5 ??F) 03/06/2020 4:25 AM CD T Respiratory Rate 16 03/06/2020 4:25 AM CDT Oxygen Saturation 97% 03/06/2020 4:25 AM CDT Inhaled Oxygen Concentration - - Weight 90.7 kg (200 lb) 03/06/2020 4:25 AM CDT Height 180.3 cm (5' 11 ) 03/06/2020 4:25 AM CDT Body Mass Index 27.89 03/06/2020 4:25 AM CDT documented in this encounter Discharge Instructions * Attachments The following attachments cannot be sent through Care Everywhere. * Knee Sprain (Cambodian) documented in this encounter Medications at Time of Discharge Benzocaine-Mentho l (CEPACOL EXTRA STRENGTH) 15-2.6 MG Lozenge 1 Lozenge by Mouth/Throat route every 2 hours as needed for Other (sore throat). 18 Lozenge 10/05/2018 naproxen (NAPROSYN) 500 MG Tablet Take 1 Tab by mouth 2 times daily (with meals). 30 Tab 03/06/2020 documented as of this encounter ED Notes * Candice Langston RN - 03/06/2020 6:01 AM CDT Patient discharged. Discharge instructions and patient educational material reviewed with patient; questions and concerns addressed; patient verbalizes understanding, using teach back. Patient was given one prescription. Patient discharged per crutches with self as responsible republican. * Candice Langston RN - 03/06/2020 5:05 AM CDT XR at bedside * Candice Langston RN - 03/06/2020 4:[address] Vera at bedside for exam. * John Vera MD - 03/06/2020 4:35 AM CDT Chief Complaint Patient presents with ??? Knee Pain Patient is a 44-year-old male who states he stepped off a curb this evening stepping into a potholecausing his right knee to twist. Patient states he has had immediate pain on the medial side of theknee. He is unable to completely straighten it out without discomfort. He is not aware of any swelling or obvious deformity. He has increased pain with ambulation. No current facility-administered medications for this encounter. Current Outpatient Medications Medication Sig Dispense Refill ??? Benzocaine-Menthol (CEPACOL EXTRA STRENGTH) 15-2.6 MG Lozenge 1 Lozenge by Mouth/Throat route every 2 hours as needed for Other (sore throat). 18 Lozenge 0 ??? naproxen (NAPROSYN) 500 MG Tablet [...] resource strain: Not on file ??? Food insecurity: Worry: Not on file Inability: Not on file ??? Transportation needs: Medical: Not on file Non-medical: Not on file Tobacco Use ??? Smoking status: Current Every Day Smoker Packs/day: 0.50 Types: Cigarettes ??? Smokeless tobacco: Never Used Substance and Sexual Activity ??? Alcohol use: Yes ??? Drug use: Yes Frequency: 7.0 times per week Types: Marijuana ??? Sexual activity: Not on file Lifestyle ??? Physical activity: Days per week: Not on file Minutes per session: Not on file ??? Stress: Not on file Relationships ??? Social connections: Talks on phone: Not on file Gets together: Not on file Attends confucianism service: Not on file Active member of club or organization: Not on file Attends meetings of clubs or organizations: Not on file Relationship status: Not on file ??? Intimate partner violence: Fear of current or ex partner: Not on file Emotionally abused: Not on file Physically abused: Not on file Forced sexual activity: Not on file Other Topics Concern ??? Not on file Social History Narrative ??? Not on file BP 133/72 Pulse 71 Temp 97.5 ??F (36.4 ??C) (Tympanic) Resp 16 Ht 5' 11 (1.803 m) Wt 200lb (90.7 kg) SpO2 97% BMI 27.89 kg/m?? Review of Systems Constitutional: Negative for activity change, appetite change, chills, diaphoresis and fever. HENT: Negative for ear pain, sinus pressure, sinus pain and trouble swallowing. Eyes: Negative for visual disturbance. Respiratory: Negative for apnea, choking and chest tightness. Cardiovascular: Negative for chest pain. Gastrointestinal: Negative for abdominal pain, diarrhea, nausea and vomiting. Endocrine: Negative for cold intolerance and heat intolerance. Genitourinary: Penile swelling: Musculoskeletal: Positive for arthralgias (Right knee). Negative for back pain and neck pain. Neurological: Negative for weakness and light-headedness. All other systems reviewed and are negative. Physical Exam Musculoskeletal: Right knee: He exhibits decreased range of motion, bony tenderness and MCL laxity. He exhibits no swelling, no effusion, no deformity, no erythema, no LCL laxity and normal patellar mobility. Tenderness found. Medial joint line and MCL tenderness noted. Procedures A knee immobilizer was placed on the patient's left knee by the head orthopedic team physician. Post application evaluation of the distal extremity revealed normal color, normal sensation, and good capillary refill. Patient was also given crutches and instructed on their use. Imaging Results XR KNEE 1 OR 2 VIEWS RIGHT (Final result) Result time 03/06/20 05:20:42 Procedure changed from XR KNEE 3 VIEWS RIGHT Final result by Nakul Carrasco MD (03/06/20 05:20:42) Impression: IMPRESSION: No acute osseous abnormality. Narrative: EXAM DESCRIPTION: XR KNEE 1 OR 2 VIEWS RIGHT REASON FOR STUDY: Twisting injury of the right knee last night at approximately 2030 hours. Stepped in a possible. Pain with straightening. TECHNIQUE: AP and lateral radiographic views acquired of the right knee. COMPARISON: None available FINDINGS: BONES/JOINTS: No acute fracture, malalignment or osseous abnormalities.Joint spaces are maintained. SOFT TISSUES: Unremarkable. OTHER: No other significant finding. THIS IS AN ELECTRONICALLY VERIFIED FINAL REPORT 03/06/2020 5:17 AM - Electronically signed by Nakul Carrasco M.D. GERRY: GERRY Report ID: [id number] Reading Location: [id number] XR KNEE 3 VIEWS RIGHT (Canceled) MDM Number of Diagnoses or Management Options Amount and/or Complexity of Data Reviewed Tests in the radiology section of CPT??: ordered and reviewed Risk of Complications, Morbidity, and/or Mortality Presenting problems: low Diagnostic procedures: low Management options: low Reviewed: nursing note and vitals Interpretation: x-ray Clinical Impression 1. Left knee sprain Patient presents with the left knee strain with possible internal derangement. X-rays obtained but this came back normal. Patient was placed in a knee immobilizer and given crutches after receiving the Toradol injection. He was feeling some better. He will be discharged home on naproxen 500 b.i.d. over the next 7-10 days. I advised him to follow-up with local orthopedist or see his regular doctorif the pain persists. * Venus Flores RN - 03/06/2020 4:25 AM CDT Pt presents with c/o right knee pain after stepping into a pothole and twisting it approx 2029 this evening. Pt states he took Motrin 800mg approx 0. Pt states pain increases when he straightenshis leg out completely. documented in this encounter Plan of Treatment Not on file documented as of this encounter Procedures Procedure Name Priority Date/Time Associated Diagnosis Comments XR KNEE 1 OR 2 VIEWS RIGHT STAT 03/06/2020 5:07 AM CDT documented in this encounter Results * XR KNEE 1 OR 2 VIEWS RIGHT (03/06/2020 5:07 AM CDT) Anatomical Region Laterality Modality LOWER EXTREMITY, knee Right Digital Ra diography 03/06/2020 5:17 AM CDT Impressions 03/06/2020 5:20 AM CDT IMPRESSION: ??No acute osseous abnormality. Narrative 03/06/2020 5:20 AM CDT EXAM DESCRIPTION: ?? XR KNEE 1 OR 2 VIEWS RIGHT REASON FOR STUDY: ??Twisting injury of the right knee last night at approximately 2030 hours. ??Stepped in a possible. ??Pain with straightening. TECHNIQUE: ??AP and lateral radiographic views acquired of the right knee. COMPARISON: ??None available FINDINGS: ??BONES/JOINTS: No acute fracture, malalignment or osseous abnormalities.Joint spaces are maintained. SOFT TISSUES: Unremarkable. OTHER: No other significant finding. THIS IS AN ELECTRONICALLY VERIFIED FINAL REPORT 03/06/2020 5:17 AM - Electronically signed by Nakul Carrasco M.D. GERRY: GERRY D: ??03/06/2020 5:17 AM T: ??03/06/2020 5:17 AM Report ID: [id number] Reading Location: ??[id number] Procedure Note Nakul Carrasco MD - 03/06/2020 EXAM DESCRIPTION: XR KNEE 1 OR 2 VIEWS RIGHT REASON FOR STUDY: Twisting injury of the right knee last night at approximately 2030 hours. Stepped in a possible. Pain with straightening. TECHNIQUE: AP and lateral radiographic views acquired of the right knee. COMPARISON: None available FINDINGS: BONES/JOINTS: No acute fracture, malalignment or osseous abnormalities.Joint spaces are maintained. SOFT TISSUES: Unremarkable. OTHER: No other significant finding. THIS IS AN ELECTRONICALLY VERIFIED FINAL REPORT 03/06/2020 5:17 AM - Electronically signed by Nakul Carrasco M.D. GERRY: GERRY Report ID: [id number] Reading Location: [place] [address] IMPRESSION: No acute osseous abnormality. John Vera MD IM DIAGNOSTIC ORDERABLES Final Result documented in this encounter Visit Diagnoses Diagnosis Left knee sprain- Primary Sprain and strain of unspecified site of knee and leg documented in this encounter Administered Medications Inactive Administered Medications - up to 3 most recent administrations Medication Order MAR Action Action Date Dose Rate Site ketorolac (TORADOL) injection 60 mg 60 mg, Intramuscular, ONCE, 1 dose, On Mon03/06/20 at 0530 Given 03/06/2020 5:14 AM CDT 60 mg Left Vastus Laterali s KETOROLAC TROMETHAMINE 60 MG/2ML IM SOLN 1 dose, Starting on Mon03/06/20 at 0511, Until Mon03/06/20 at 0802, Created by cabinet override documented in this encounter Active and Recently Administered Medications Times are shown in CDT. Scheduled Medication Order 03/04/2020 03/05/2020 03/06/2020 ketorolac (TORADOL) injection 60 mg (COMPLETED) 60 mg, Intramuscular, ONCE, 1 dose, On Mon03/06/20 at 0530 0514 (Given - Provid er: Candice Langston RN)0516 (Due) No Frequency Medication Order 03/04/2020 03/05/2020 03/06/2020 KETOROLAC TROMETHAMINE 60 MG/2ML IM SOLN 1 dose, Starting on Mon03/06/20 at 0511, Until Mon03/06/20 at 0802, Created by cabinet override documented in this encounter Care Teams Pediatric Oncologist Relationship Specialty Start Date End Date Provider, None [place] PCP - General 04/19/18 documented as of this encounter
--- OUTSIDE RECORDS SUMMARY | 2024-11-03 02:44 | XMS_ITS | Clinical Summary ---
Author Organization [facility] Address [address] [place] [address]. [place] [address] [place] [address] Care Team Providers Care Water/Wastewater Project Manager Name Role Phone None, Provider MD Primary [...] on file Legal Sex Male 8:40 AM WATCH DIAL STONER Gender Identity Not on file Sexual Orientation Not on file Last Filed Vital Signs Vital Sign Reading Time Taken Comments Blood Pressure 139/85 12/18/2022 8:44 AM WATCH DIAL STONER Pulse 63 12/18/2022 8:44 AM WATCH DIAL STONER Temperature 36.6 ??C (97.8 ??F) 12/18/2022 8:44 AM CS T Respiratory Rate 18 12/18/2022 8:44 AM WATCH DIAL STONER Oxygen Saturation 99% 12/18/2022 8:44 AM WATCH DIAL STONER Inhaled Oxygen Concentration - - Weight 90.7 kg (200 lb) 12/18/2022 8:44 AM WATCH DIAL STONER Height 180.3 cm (5' 11 ) 12/18/2022 8:44 AM WATCH DIAL STONER Body Mass Index 27.89 12/18/2022 8:44 AM WATCH DIAL STONER Plan of Treatment Health Maintenance Due Date [...] age to complete this topic Insurance [place] [address] Care Teams Water/Wastewater Project Manager Relationship Specialty Start Date End Date None, Provider, PCP - General UNKNOWN PHYSICIAN SPECIALTY 12/18/22
--- OUTSIDE RECORDS SUMMARY | 2024-11-03 02:44 | XMS_ITS | Encounter Summary ---
Author Organization [facility] Address [address] [place] [address]. [place], [place] [address] [place] [address] Care Team Providers Care Strategy Lead Name Role Phone None, Provider Primary Care [...] on file Legal Sex Male 8:40 AM ELECTRIC SHIPYARD OPERATOR Gender Identity Not on file Sexual Orientation Not on file COVID-19 Exposure Response Date Recorded In the last 10 days, have yo u been in contact with someone who was confirmed or suspected to have Coronavirus/COVID-19? No / Unsure 12/18/2022 8:46 AM ELECTRIC SHIPYARD OPERATOR documented as of this encounter Plan of Treatment Not on file documented as of this encounter Visit Diagnoses Not on filedocumented in this encounter Care Teams Strategy Lead Relationship Specialty Start Date End Date None, Provider, PCP - General UNKNOWN PHYSICIAN SPECIALTY 12/18/22 documented as of this encounter
--- OUTSIDE RECORDS SUMMARY | 2024-11-03 02:44 | XMS_ITS | Encounter Summary ---
Author Organization [facility] Address [address] [place] [address]. [place] [address] [place] [address] Care Team Providers Care Pediatric Physical Therapist Name Role Phone None, Provider Primary Care Provider Unavaila ble Reason for Visit * Reason Comments Eye Injury Encounter Details Date Type Department Care Team (Late st Contact Info) Description 12/18/2022 8:46 AM MAGNETIC RESONANCE IMAGING COORDINATOR - 12/18/2022 10:09 AM MAGNETIC RESONANCE IMAGING COORDINATOR Emergency [facility] [place] [address] Samina Lobato NP [address] [address] Eye Injury Discharge Disposition: Home or Self [...] on file Legal Sex Male 8:40 AM MAGNETIC RESONANCE IMAGING COORDINATOR Gender Identity Not on file Sexual Orientation Not on file COVID-19 Exposure Response Date Recorded In the last 10 days, have yo u been in contact with someone who was confirmed or suspected to have Coronavirus/COVID-19? No / Unsure 12/18/2022 8:46 AM MAGNETIC RESONANCE IMAGING COORDINATOR documented as of this encounter Last Filed Vital Signs Vital Sign Reading Time Taken Comments Blood Pressure 139/85 12/18/2022 8:44 AM MAGNETIC RESONANCE IMAGING COORDINATOR Pulse 63 12/18/2022 8:44 AM MAGNETIC RESONANCE IMAGING COORDINATOR Temperature 36.6 ??C (97.8 ??F) 12/18/2022 8:44 AM CS T Respiratory Rate 18 12/18/2022 8:44 AM MAGNETIC RESONANCE IMAGING COORDINATOR Oxygen Saturation 99% 12/18/2022 8:44 AM MAGNETIC RESONANCE IMAGING COORDINATOR Inhaled Oxygen Concentration - - Weight 90.7 kg (200 lb) 12/18/2022 8:44 AM MAGNETIC RESONANCE IMAGING COORDINATOR Height 180.3 cm (5' 11 ) 12/18/2022 8:44 AM MAGNETIC RESONANCE IMAGING COORDINATOR Body Mass Index 27.89 12/18/2022 8:44 AM MAGNETIC RESONANCE IMAGING COORDINATOR documented in this encounter Discharge Instructions * Attachments The following attachments cannot be sent through Care Everywhere. * Corneal Abrasion Discharge Instructions (Spanish) documented in this encounter ED Notes * [...] Patient verbalized understanding of the discharge instructions. ETIC RESONANCE IMAGING COORDINATOR * Samina Lobato NP - 12/18/2022 8:51 AM CST [facility] Emergency Department- [place], [place] HISTORICAL INFORMATION Primary Care Doctor: Provider [...] 12/18/2022, Until 12/25/2022, Fax Class: [id number] [address] AT [facility] [address] (Ph #: [phone]) DAYANARA CAHMORRO NP 12/18/22 1824 Cosigned by Layton Dent MD at 12/19/2022 1:23 PM MAGNETIC RESONANCE IMAGING COORDINATOR ETIC RESONANCE IMAGING COORDINATOR ETIC RESONANCE IMAGING COORDINATOR * Rosette Funez RN - 12/18/2022 8:44 AM CST Ambulatory to triage with director account management left eye injury that happened last night while grinding metal. He reports getting a piece of metal in his eye. He reports pain/burning with vision changes. ROSETTE FUNEZ RN ETIC RESONANCE IMAGING COORDINATOR documented in this encounter Plan of Treatment [...] 12/18/22 at 0900 Given 12/18/2022 9:03 AM MAGNETIC RESONANCE IMAGING COORDINATOR 1 strip tetracaine 0.5 % ophthalmic solution 1 drop 1 drop, Left Eye, Once, 1 dose, On 12/18/22 at 0900 Given 12/18/2022 9:03 AM MAGNETIC RESONANCE IMAGING COORDINATOR 1 drop documented in this encounter Active and Recently Administered Medications Times are shown in MAGNETIC RESONANCE IMAGING COORDINATOR. Scheduled Medication Order 12/16/2022 12/17/2022 12/18/2022 fluorescein [...] 1210 documented in this encounter Care Teams Pediatric Physical Therapist Relationship Specialty Start Date End Date None, Provider, PCP - General UNKNOWN PHYSICIAN SPECIALTY 12/18/22 documented as of this encounter
--- OUTSIDE RECORDS SUMMARY | 2024-11-03 02:45 | XMS_ITS | Encounter Summary ---
Author Organization [facility] Care Team Providers Care Hvac Controls Technician Name Role Phone Provider, None Primary Care [...] on filedocumented in this encounter Care Teams Hvac Controls Technician Relationship Specialty Start Date End Date Provider, None [place] PCP - General 04/19/18 documented as of this encounter
--- OUTSIDE RECORDS SUMMARY | 2024-11-03 02:45 | XMS_ITS | Encounter Summary ---
Author Organization [facility] Address [address] [place] [address] Phone Care Team Providers Care Arch Support Maker Name Role Phone Provider, None Primary Care Provider Unavailabl e Reason for Visit * Reason Comments Knee Pain Encounter Details Date Type Department Care Team (Late st Contact Info) Description 10/03/2020 6:32 PM SECURITY INSTALLATION TECHNICIAN - 10/03/2020 8:01 PM SECURITY INSTALLATION TECHNICIAN Emergency [facility] Emergency [address] [place] [address] Eb Maldonado, PAC [address] [place] [address] Right knee pain Discharge Disposition: Discharged to [...] COVID-19? No / Unsure 10/03/2020 6:59 PM SECURITY INSTALLATION TECHNICIAN documented as of this encounter Last Filed Vital Signs Vital Sign Reading Time Taken Comments Blood Pressure 125/78 10/03/2020 6:27 PM SECURITY INSTALLATION TECHNICIAN Pulse 66 10/03/2020 6:27 PM SECURITY INSTALLATION TECHNICIAN Temperature 36.3 ??C (97.4 ??F) 10/03/2020 6:27 PM CS T Respiratory Rate 18 10/03/2020 6:27 PM SECURITY INSTALLATION TECHNICIAN Oxygen Saturation 98% 10/03/2020 6:27 PM SECURITY INSTALLATION TECHNICIAN Inhaled Oxygen Concentration - - Weight 86.2 kg (190 lb) 10/03/2020 6:27 PM SECURITY INSTALLATION TECHNICIAN Height 180.3 cm (5' 11 ) 10/03/2020 6:27 PM SECURITY INSTALLATION TECHNICIAN Body Mass Index 26.5 10/03/2020 6:27 PM SECURITY INSTALLATION TECHNICIAN documented in this encounter Discharge Instructions * Attachments The following attachments cannot be sent through Care Everywhere. * Strains and Sprains, Treating (Cuban) documented in this encounter Medications at Time [...] per ambulatory mode with self as responsible republican. RITY INSTALLATION TECHNICIAN * Eb Maldonado PAC - 10/03/2020 7:34 [...] file Gets together: Not on file Attends presybeterian service: Not on file Active member of [...] Mercedes Lynch M.D. TB: TB Report ID: [id number] Reading Location: [id number] XR KNEE 3 VIEWS RIGHT (Canceled) MDM Coding Clinical Impression 1. Right knee pain Reviewed imaging with patient. Suspect soft tissue injury. [place] for pain. Continue to use knee immobilizer [...] Weston Carballo MD at 2020 5:43 AM SECURITY INSTALLATION TECHNICIAN RITY INSTALLATION TECHNICIAN RITY INSTALLATION TECHNICIAN * Yoni Christianson RN - 10/03/2020 6:29 PM CST Pt to ER triage w/c/o right knee pain starting yesterday. Pt states that he had a similar problem approx 1 year ago with the same leg. Pt denies hitting head or LOC. Xray right knee ordered in triage. RITY INSTALLATION TECHNICIAN documented in this encounter Plan of Treatment Not on file documented as of this encounter Procedures Procedure Name Priority Date/Time Associated Diagnosis Comments XR KNEE 1 OR 2 VIEWS RIGHT STAT 10/03/2020 7:29 PM SECURITY INSTALLATION TECHNICIAN documented in this encounter Results * XR KNEE 1 OR 2 VIEWS RIGHT (10/03/2020 7:29 PM SECURITY INSTALLATION TECHNICIAN) Anatomical Region Laterality Modality LOWER EXTREMITY, knee Right Digital Ra diography 10/03/2020 7:47 PM SECURITY INSTALLATION TECHNICIAN Impressions 10/03/2020 7:50 PM SECURITY INSTALLATION TECHNICIAN IMPRESSION: ?? 1. ??Joint effusion. ??No acute fracture or dislocation. Narrative 10/03/2020 7:50 PM SECURITY INSTALLATION TECHNICIAN EXAM DESCRIPTION: ?XR KNEE 1 OR 2 [...] PM T: ??10/03/2020 7:47 PM Report ID: [id number] Reading Location: ??[facility] Procedure Note Mercedes Lynch [...] Mercedes Lynch M.D. TB: TB Report ID: [id number] Reading Location: [facility] IMPRESSION: 1. Joint effusion. No acute fracture or dislocation. Eb Maldonado PAC IMG DIAGNOSTIC ORDER ROGELIO Final Result documented in this encounter Visit Diagnoses Diagnosis Right knee pain- Primary Pain in joint, lower leg documented in this encounter Care Teams Arch Support Maker Relationship Specialty Start Date End Date Provider, None [place] PCP - General 04/19/18 documented as of this encounter
--- OUTSIDE RECORDS SUMMARY | 2024-11-03 02:45 | XMS_ITS | Clinical Summary ---
Author Organization [facility] Address [address] [place] [address] Phone Care Team Providers Care Marker Machine Name Role Phone Provider, None Primary Care [...] age to complete this topic Care Teams Marker Machine Relationship Specialty Start Date End Date Provider, None [place] PCP - General 04/19/18
--- OUTSIDE RECORDS SUMMARY | 2024-11-03 02:45 | XMS_ITS | Encounter Summary ---
Author Organization [facility] Address [address] [place] [address] Phone Care Team Providers Care Fur Glazer Name Role Phone Provider, None Primary Care Provider Unavailabl e Reason for Visit * Reason Comments Exposure to STD Encounter Details Date Type Department Care Team (Late st Contact Info) Description 05/02/2021 3:11 PM CDT - 05/02/2021 3:52 PM CDT Emergency [facility] Emergency [address] [place] [address] Sudarshan Nolan MD [address] [place] [address] Penile discharge Discharge Disposition: Discharged to home [...] * Sexually Transmitted Diseases (STDs), What Are (Argentine) documented in this encounter Medications at Time [...] RN) documented in this encounter Care Teams Fur Glazer Relationship Specialty Start Date End Date Provider, None [place] PCP - General 04/19/18 documented as of this encounter
--- OUTSIDE RECORDS SUMMARY | 2024-11-03 02:45 | XMS_ITS | Encounter Summary ---
Author Organization [facility] Address [address] [place] [address] Phone Care Team Providers Care Geomatics Professor Name Role Phone Provider, None Primary Care Provider Unavailabl e Reason for Visit * Reason Comments Knee Pain Encounter Details Date Type Department Care Team (Late st Contact Info) Description 03/06/2020 4:23 AM CDT - 03/06/2020 6:02 AM CDT Emergency [facility] Emergency [address] [place] [address] John Vera MD [address] [place] [address] Left knee sprain Discharge Disposition: Discharged to [...] sent through Care Everywhere. * Knee Sprain (Niuean) documented in this encounter Medications at Time [...] discharged per crutches with self as responsible libertarian. * Candice Langston RN - 03/06/2020 5:05 [...] file Gets together: Not on file Attends jainism service: Not on file Active member of [...] on the patient's left knee by the orthopaedic technologist. Post application evaluation of the distal extremity [...] Nakul Carrasco M.D. GERRY: GERRY Report ID: [id number] Reading Location: [id number] XR KNEE 3 VIEWS RIGHT (Canceled) MDM [...] AM T: ??03/06/2020 5:17 AM Report ID: [id number] Reading Location: ??[id number] Procedure Note Nakul Carrasco MD - 03/06/2020 [...] Nakul Carrasco M.D. GERRY: GERRY Report ID: [id number] Reading Location: [place] [id number] IMPRESSION: No acute osseous abnormality. John Vera [...] override documented in this encounter Care Teams Geomatics Professor Relationship Specialty Start Date End Date Provider, None [place] PCP - General 04/19/18 documented as of this encounter
--- OUTSIDE RECORDS SUMMARY | 2024-11-03 02:45 | XMS_ITS | Encounter Summary ---
Author Organization [facility] Care Team Providers Care Behavioral Health Care Coordinator Name Role Phone Provider, None Primary Care [...] COVID-19? No / Unsure 10/03/2020 6:59 PM SHOWER ATTENDANT documented as of this encounter Plan of Treatment Not on file documented as of this encounter Visit Diagnoses Not on filedocumented in this encounter Care Teams Behavioral Health Care Coordinator Relationship Specialty Start Date End Date Provider, None [place] PCP - General 04/19/18 documented as of this encounter
--- OUTSIDE RECORDS SUMMARY | 2024-11-03 02:45 | XMS_ITS | Encounter Summary ---
Author Organization [facility] Care Team Providers Care Upholsterer Outside Name Role Phone Provider, None Primary Care [...] on filedocumented in this encounter Care Teams Upholsterer Outside Relationship Specialty Start Date End Date Provider, None [place] PCP - General 04/19/18 documented as of this encounter
== END 2024-10-27 04:11 | disposition home or self-care (01) ==
PROVIDERS: Emergency Provider Emergency Medicine
DX: R51.9 Headache, unspecified (principal)
CPT/HCPCS: 96361; 96374; 96375; 99284; J0780; J1200; J1885; J7030